=== PATIENT | female | born 1995 | race Caucasian/White ===

== ENCOUNTER 2020-05-15 11:24 | Emergency (ER) | payer OTHER ==
[~2020-05-15] VITALS: Ht 160 cm; Wt 62.3 kg
[2020-05-15] MEDS ORDERED: NS 1,000 ML IV ONE (12:00)
[2020-05-15 12:20] LABS: BASO # 0.1 10^3/uL (0.0-0.2); BASO % 0.6 % (0.0-1.0); EOS # 0.1 10^3/uL (0.0-0.5); EOS % 1.2 % (0.0-3.0); HEMATOCRIT 40.8 % (36.0-47.0); HEMOGLOBIN 13.9 g/dl (12.0-15.5); LYMPH # 2.3 10^3/uL (1.5-5.0); LYMPH % 27.5 % (24.0-44.0); MEAN CORPUSCULAR HEMOGLOBIN 30.3 pg (27.0-33.0); MEAN CORPUSCULAR HGB CONC 34.1 g/dl (32.0-36.5); MEAN CORPUSCULAR VOLUME 88.9 fl (80.0-96.0); MONO # 0.5 10^3/uL (0.0-0.8); MONO % 6.4 % (0.0-5.0); NEUTROPHILS # 5.3 10^3/uL (1.5-8.5); NEUTROPHILS % 63.9 % (36.0-66.0); PLATELET COUNT, AUTOMATED 205 10^3/uL (150-450); RED BLOOD COUNT 4.59 10^6/uL (4.00-5.40); WHITE BLOOD COUNT 8.3 10^3/uL (4.0-10.0)
[2020-05-15 12:53] LABS: ALBUMIN 4.2 GM/DL (3.2-5.2); ALT/SGPT 62 U/L (12-78); BILIRUBIN,DIRECT 0.2 MG/DL (0.0-0.2); BILIRUBIN,TOTAL 0.4 MG/DL (0.2-1.0); LIPASE 87 U/L (73-393); TOTAL PROTEIN 7.4 GM/DL (6.4-8.2)
[2020-05-15 13:02] LABS: HCG, SERUM QUALITATIVE NEGATIVE (NEGATIVE)
[2020-05-15] MEDS: GASTROGRAFIN SOLUTION 30ML PO SCH ×2 (13:07→13:32)
[2020-05-15] MEDS ORDERED: ISOVUE-370 76% 100ML VIAL As Ordered ONE (14:18)
--- NOTE | 2020-05-15 14:45 | REPVR ---
PROCEDURE INFORMATION: Exam: CT Abdomen And Pelvis With Contrast Exam date and time: 05/15/2020 12:34 PM Age: 24 years old Clinical indication: Abdominal pain; Periumbilical; Additional info: Periumbil pain to rlq concern for appy TECHNIQUE: Imaging protocol: Computed tomography of the abdomen and pelvis with intravenous contrast. Radiation optimization: All CT scans at this facility use at least one of these dose optimization techniques: automated exposure control; mA and/or kV adjustment per patient size (includes targeted exams where dose is matched to clinical indication); or iterative reconstruction. Contrast material: ISOVUE 370; Contrast volume: 100 ml; Contrast route: INTRAVENOUS (IV); COMPARISON: No relevant prior studies available. FINDINGS: Pleural space: No acute airspace or pleural disease. Liver: Poorly characterized 8 mm nodular hypodensity in the posterior segment of the right hepatic lobe. Gallbladder and bile ducts: No cholelithiasis or biliary ductal dilatation. Pancreas: No pancreatic mass or ductal dilatation. Spleen: No splenomegaly. Adrenals: Unremarkable adrenals. Kidneys and ureters: Normal renal morphology. No hydronephrosis. Stomach and bowel: No significant small bowel dilatation. Prominent stool. Diverticula, without pericolonic inflammation. Appendix: No acute appendicitis. Intraperitoneal space: Trace free fluid in the pelvis. Vasculature: Normal caliber of the abdominal aorta. Lymph nodes: Multiple lymph nodes including an 11 x 6 x 13 mm mesenteric lymph node in the right lower quadrant. Bladder: Normal bladder morphology. Reproductive: 3.7 cm right ovarian cyst. Involuted 1.5 cm left ovarian cyst. Bones/joints: 13 mm bone island in the proximal right femur. L5-S1 disc bulging. IMPRESSION: 1. 3.7 cm right ovarian cyst. 2. No acute appendicitis. 3. Additional findings as described above. Electronically signed by: Clif Vargas On 05/15/2020 14:45:20 PM
[2020-05-15 15:29] VITALS: BP 125/72
== END 2020-05-15 15:47 | disposition home or self-care (01) ==
LOC: M ED 11:24
DX: K59.00 Constipation, unspecified (principal); N83.201 Unspecified ovarian cyst, right side; N83.202 Unspecified ovarian cyst, left side; M89.8X5 Other specified disorders of bone, thigh; I88.0 Nonspecific mesenteric lymphadenitis; K21.9 Gastro-esophageal reflux disease without esophagitis; N92.6 Irregular menstruation, unspecified; Z98.890 Other specified postprocedural states
CPT/HCPCS: 74177; 80047; 80076; 81001; 83690; 84703; 85025; 87086; 99284; Q9963; Q9967